=== PATIENT | male | born 1960 | race African-American/Black ===

== ENCOUNTER 2018-03-16 05:30 | Inpatient (IN) | payer BC, OTHER ==
[2018-03-16] MEDS ORDERED: NEOSTIGMINE 3 MG/3 ML SYRINGE (06:55)
[2018-03-16] MEDS ORDERED: GLYCOPYRROLATE 0.4 MG INJ (06:55)
[2018-03-16] MEDS ORDERED: ROCURONIUM 50 MG INJ (06:55)
[2018-03-16] MEDS ORDERED: PROPOFOL 20 ML (06:55)
[2018-03-16] MEDS ORDERED: MIDAZOLAM 1 MG/ML 2 ML INJ (06:55)
[2018-03-16] MEDS ORDERED: CEFAZOLIN 1 GM INJ (06:55)
[2018-03-16] MEDS ORDERED: ONDANSETRON 4 MG INJ (06:56)
[2018-03-16] MEDS ORDERED: DEXAMETHASONE 4 MG/ML 1 ML INJ (06:56)
[2018-03-16] MEDS ORDERED: SUGAMMADEX SODIUM 200 MG/2 ML VIAL IV (07:00)
[2018-03-16] MEDS ORDERED: SUCCINYLCHOLINE CHLORIDE 100 MG/5 ML SYG IV (07:00)
[2018-03-16] MEDS: CEFAZOLIN 1 GM/50 ML (PMX) 50 ML IVPB ×2 (07:27→16:40)
[2018-03-16] MEDS ORDERED: NALOXONE (0.4 MG/ML) INJ IV (07:30)
[2018-03-16] MEDS ORDERED: DIPHENHYDRAMINE 50 MG INJ IV ×2 (07:30→08:00)
[2018-03-16] MEDS ORDERED: LABETALOL HCL 20MG INJ (07:31)
[2018-03-16] MEDS ORDERED: TRIMETHOBENZAMIDE 100 MG/ML VIAL IM (08:00)
[2018-03-16] MEDS ORDERED: HYDROmorphONE 1 MG/5 ML IV SYRINGE IV ×3 (08:00)
[2018-03-16] MEDS ORDERED: LABETALOL HCL 20MG INJ IV (08:00)
[2018-03-16] MEDS ORDERED: ALBUTEROL 0.083% (NEB) 2.5 MG/3 ML AMP HHN (08:00)
[2018-03-16] MEDS ORDERED: ONDANSETRON 4 MG INJ IV (08:00)
[2018-03-16] MEDS ORDERED: OXYCODONE/ACETAMINOPHEN (5/325) TAB PO ×2 (08:00)
[2018-03-16] MEDS ORDERED: IPRATROPIUM (NEB) 0.5 MG/2.5 ML AMP HHN (08:00)
[2018-03-16] MEDS ORDERED: MEPERIDINE 25 MG INJ IV (08:00)
[2018-03-16] MEDS ORDERED: EPHEDrine SULFATE 50 MG/5 ML SYG IV (08:00)
[2018-03-16] MEDS ORDERED: FENTAnyl 50 MCG/ML VIAL IV ×2 (08:00)
[2018-03-16] MEDS ORDERED: hydrALAzine 20 MG INJ IV (08:00)
[2018-03-16] MEDS ORDERED: MIDAZOLAM 1 MG/ML 2 ML INJ IV (08:00)
[2018-03-16] MEDS: BUPIVACAINE 0.25%/EPI (SDV) 30 ML INJ (09:17)
[2018-03-16] MEDS: SURGIFOAM POWDER 1 GM KIT (09:28)
[2018-03-16] MEDS: CA CHLORIDE 10% 10 ML SYRINGE (09:28)
[2018-03-16] MEDS: POLYMYXIN/BACITRACIN 1L IRRIG (09:29)
[2018-03-16] MEDS: HEPARIN 1000 UNITS/ML 10 ML INJ (09:29)
[2018-03-16] MEDS: THROMBIN 5000 UNIT VIAL (09:30)
[2018-03-16] MEDS: HYDROmorphONE 0.2 MG/ML PCA IV (11:08)
[2018-03-16] MEDS: FENTAnyl 50 MCG/ML VIAL IV (11:22)
[2018-03-16] MEDS: DOCUSATE SODIUM 100 MG CAP PO ×2 (11:25→20:41)
[2018-03-16] MEDS: D5W-0.45 NACL + KCL 20 MEQ 1,000 ML IV ×2 (12:47→17:02)
[2018-03-16] MEDS: ONDANSETRON 4 MG INJ IV (12:47)
[2018-03-16] MEDS: [UNRECOGNIZED DRUG - REMARK] XX (13:20)
[2018-03-16] MEDS: GABAPENTIN 400 MG CAP PO ×2 (13:20→20:41)
[2018-03-16] MEDS: ACETAMINOPHEN 325 MG TAB PO (14:35)
[2018-03-16] MEDS: ATORVASTATIN 10 MG TAB PO (20:41)
[2018-03-16] MEDS ORDERED: NON-FORMULARY/PATIENT OWN MED (Varenicline Tartrate (Chantix) 1 MG) PO (21:00)
[2018-03-17] MEDS: CEFAZOLIN 1 GM/50 ML (PMX) 50 ML IVPB (00:04)
[2018-03-17] MEDS: CHANTIX 1 MG PO ×3 (00:04→20:18)
[2018-03-17] MEDS: D5W-0.45 NACL + KCL 20 MEQ 1,000 ML IV ×2 (03:02→13:02)
[2018-03-17 05:22] LABS: ADD MAN DIFF? NO
[2018-03-17 05:31] LABS: BASOPHILS % 0.1 % (0.0-2.0); HEMATOCRIT 37.7 % (42.0-52.0); HEMOGLOBIN 12.8 g/dl (14.0-18.0); LYMPHOCYTES % 11.6 % (15.0-51.0); MEAN CORPUSCULAR VOLUME 94.3 fl (82.0-101.0); MEAN PLATELET VOLUME 10.1 fl (7.4-10.4); MONOCYTE # 0.8 10^3/ul (0.3-0.9); MONOCYTES % 8.7 % (0.0-11.0); NEUTROPHILS % 79.3 % (39.0-77.0); PLATELET COUNT 176 10^3/UL (140-415); RED CELL DISTRIBUTION WIDTH 13.1 % (11.5-14.5)
[2018-03-17 05:31] LABS: WHITE BLOOD COUNT 8.8 10^3/ul (4.8-10.8)
[2018-03-17] MEDS: CEPASTAT LOZENGE MT (05:39)
[2018-03-17 06:26] LABS: ANION GAP 15 (8-16); BLOOD UREA NITROGEN 13 mg/dl (7-20); CALCIUM 8.9 mg/dl (8.4-10.2); CARBON DIOXIDE 23 mmol/L (21-31); CHLORIDE 106 mmol/L (97-110); CREATININE 0.95 mg/dl (0.61-1.24); GLUCOSE 151 mg/dl (70-220); MAGNESIUM 1.9 mg/dl (1.7-2.5); POTASSIUM 4.4 mmol/L (3.5-5.1); SODIUM 140 mmol/L (135-144)
[2018-03-17] MEDS: GABAPENTIN 400 MG CAP PO ×3 (08:36→20:17)
[2018-03-17] MEDS: PANTOPRAZOLE (EC) 40 MG TAB PO (08:37)
[2018-03-17] MEDS: DOCUSATE SODIUM 100 MG CAP PO ×2 (08:37→20:17)
[2018-03-17] MEDS: traMADol 50 MG TAB PO ×4 (09:37→23:47)
[2018-03-17] MEDS: ACETAMINOPHEN 325 MG TAB PO (19:21)
[2018-03-17] MEDS: ATORVASTATIN 10 MG TAB PO (20:17)
[2018-03-17] MEDS: HYDROmorphONE 0.5 MG/0.5 ML SYG IV (20:38)
[2018-03-18] MEDS: GABAPENTIN 400 MG CAP PO ×3 (07:56→20:40)
[2018-03-18] MEDS: PANTOPRAZOLE (EC) 40 MG TAB PO (07:56)
[2018-03-18] MEDS: CARISOPRODOL 350 MG TAB PO ×3 (07:56→20:40)
[2018-03-18] MEDS: traMADol 50 MG TAB PO ×3 (07:56→18:12)
[2018-03-18] MEDS: DOCUSATE SODIUM 100 MG CAP PO ×2 (07:57→20:40)
[2018-03-18] MEDS: CHANTIX 1 MG PO ×2 (07:57→20:40)
[2018-03-18] MEDS: CEPASTAT LOZENGE MT (08:01)
[2018-03-18] MEDS: HYDROmorphONE 0.5 MG/0.5 ML SYG IV (10:51)
[2018-03-18] MEDS: ACETAMINOPHEN 325 MG TAB PO (15:12)
[2018-03-18 16:49] LABS: ADD UMIC YES; UR ASCORBIC ACID NEGATIVE (NEGATIVE); UR BILIRUBIN (Dip) NEGATIVE (NEGATIVE); UR BLOOD (Dip) 1+ mg/dL (NEGATIVE); UR CLARITY CLEAR (CLEAR); UR COLOR YELLOW (YELLOW); UR GLUCOSE (Dip) NEGATIVE (NEGATIVE); UR KETONES (Dip) NEGATIVE (NEGATIVE); UR LEUKOCYTE ESTERASE (Dip) NEGATIVE Leu/ul (NEGATIVE); UR NITRITE (Dip) NEGATIVE (NEGATIVE); UR RBC 3 /HPF (0-5); UR SPECIFIC GRAVITY (Dip) 1.018 (1.003-1.030); UR TOTAL PROTEIN (Dip) NEGATIVE (NEGATIVE); UR UROBILINOGEN (Dip) 2+ mg/dL (NEGATIVE); UR WBC 1 /HPF (0-5)
[2018-03-18] MEDS: ATORVASTATIN 10 MG TAB PO (20:40)
[2018-03-19] MEDS: traMADol 50 MG TAB PO ×2 (01:28→08:02)
[2018-03-19 05:26] LABS: ADD MAN DIFF? NO
[2018-03-19 05:30] LABS: BASOPHIL # 0.1 10^3/ul (0.0-0.1); BASOPHILS % 0.6 % (0.0-2.0); EOSINOPHILS % 0.4 % (0.0-7.0); HEMATOCRIT 38.4 % (42.0-52.0); LYMPHOCYTES % 31.7 % (15.0-51.0); MEAN CORPUSCULAR HEMOGLOBIN 31.6 pg (29.0-33.0); MEAN CORPUSCULAR HGB CONC 33.9 g/dl (32.0-37.0); MEAN CORPUSCULAR VOLUME 93.2 fl (82.0-101.0); MEAN PLATELET VOLUME 10.2 fl (7.4-10.4); MONOCYTE # 1.2 10^3/ul (0.3-0.9); NEUTROPHIL # 5.1 10^3/ul (1.6-7.5); PLATELET COUNT 174 10^3/UL (140-415); RED BLOOD COUNT 4.12 10^6/ul (4.70-6.10); RED CELL DISTRIBUTION WIDTH 13.4 % (11.5-14.5)
[2018-03-19 05:30] LABS: WHITE BLOOD COUNT 9.4 10^3/ul (4.8-10.8)
[2018-03-19] MEDS: DOCUSATE SODIUM 100 MG CAP PO ×2 (08:01→20:09)
[2018-03-19] MEDS: CHANTIX 1 MG PO ×2 (08:01→20:09)
[2018-03-19] MEDS: GABAPENTIN 400 MG CAP PO ×3 (08:01→20:09)
[2018-03-19] MEDS: CARISOPRODOL 350 MG TAB PO ×2 (08:01→20:10)
[2018-03-19] MEDS: PANTOPRAZOLE (EC) 40 MG TAB PO (08:02)
[2018-03-19] MEDS: ACETAMINOPHEN 325 MG TAB PO ×2 (09:54→20:09)
[2018-03-19] MEDS: HYDROmorphONE 0.5 MG/0.5 ML SYG IV (10:46)
[2018-03-19] MEDS: CIPROFLOXACIN 500 MG TAB PO (17:43)
[2018-03-19] MEDS: ATORVASTATIN 10 MG TAB PO (20:09)
[2018-03-19] MEDS: AL HYDROX/MG HYDROX/SIMETH 30 ML CUP PO (20:19)
[2018-03-20] MEDS: traMADol 50 MG TAB PO ×2 (06:11→19:29)
[2018-03-20] MEDS: CIPROFLOXACIN 500 MG TAB PO ×2 (06:11→17:50)
[2018-03-20] MEDS: ACETAMINOPHEN 325 MG TAB PO (06:11)
[2018-03-20] MEDS ORDERED: VANCOMYCIN IV PER PHARMACY XX (09:00)
[2018-03-20] MEDS: HYDROmorphONE 0.5 MG/0.5 ML SYG IV ×2 (09:20→18:04)
[2018-03-20] MEDS: CHANTIX 1 MG PO ×2 (09:37→21:13)
[2018-03-20] MEDS: DOCUSATE SODIUM 100 MG CAP PO ×2 (09:38→21:12)
[2018-03-20] MEDS: GABAPENTIN 400 MG CAP PO ×3 (09:38→21:12)
[2018-03-20] MEDS: PANTOPRAZOLE (EC) 40 MG TAB PO (09:38)
[2018-03-20] MEDS: VANCOMYCIN 2 GM in SOD CHLORIDE 0.9% 500 ML IVPB (11:58)
[2018-03-20] MEDS ORDERED: METHYLNALTREXONE 12 MG/0.6 ML VIAL SC (19:30)
[2018-03-20] MEDS: POLYETHYLENE GLYCOL 17 GM PACKET PO (21:12)
[2018-03-20] MEDS: ATORVASTATIN 10 MG TAB PO (21:12)
[2018-03-21] MEDS: VANCOMYCIN 1.25 GM in SOD CHLORIDE 0.9% 250 ML IVPB ×2 (00:07→13:03)
[2018-03-21 05:24] LABS: BLOOD UREA NITROGEN 11 mg/dl (7-20)
[2018-03-21 05:24] LABS: CREATININE 0.99 mg/dl (0.61-1.24)
[2018-03-21] MEDS: BISACODYL 10 MG SUPP PR (05:29)
[2018-03-21] MEDS: CIPROFLOXACIN 500 MG TAB PO (05:29)
[2018-03-21] MEDS: traMADol 50 MG TAB PO (05:32)
[2018-03-21] MEDS: PANTOPRAZOLE (EC) 40 MG TAB PO (09:15)
[2018-03-21] MEDS: GABAPENTIN 400 MG CAP PO ×2 (09:15→13:03)
[2018-03-21] MEDS: DOCUSATE SODIUM 100 MG CAP PO (09:15)
[2018-03-21] MEDS: CHANTIX 1 MG PO (09:16)
== END 2018-03-21 16:10 | DRG 518 ==
LOC: REC 05:30 → MS1 11:39
PROC: 0SH30BZ Insertion of Interspinous Process Spinal Stabilization Device into Lumbosacral Joint, Open Approach (ICD-10-PCS; principal; 2018-03-16 07:00)
PROC: 01NB0ZZ Release Lumbar Nerve, Open Approach (ICD-10-PCS; 2018-03-16 07:00)
PROC: 4A11X4G Monitoring of Peripheral Nervous Electrical Activity, Intraoperative, External Approach (ICD-10-PCS; 2018-03-16 07:00)
DX: M53.2X7 Spinal instabilities, lumbosacral region (principal); N39.0 Urinary tract infection, site not specified; M53.87 Other specified dorsopathies, lumbosacral region; M48.07 Spinal stenosis, lumbosacral region; E78.5 Hyperlipidemia, unspecified; G47.30 Sleep apnea, unspecified; K21.9 Gastro-esophageal reflux disease without esophagitis; M48.8X7 Other specified spondylopathies, lumbosacral region; M54.17 Radiculopathy, lumbosacral region; Z87.891 Personal history of nicotine dependence
CPT/HCPCS: 71045; 72100; 80048; 81001; 82565; 83735; 84520; 85025; 86850; 86900; 86901; 86999; 87040; 87086; 97110; 97116; 97161; 97530

== ENCOUNTER 2018-03-21 16:57 | Inpatient (IN) | payer OTHER ==
[2018-03-21] MEDS ORDERED: DIPHENHYDRAMINE 50 MG INJ IV (18:00)
[2018-03-21] MEDS ORDERED: ONDANSETRON 4 MG INJ IV (18:00)
[2018-03-21] MEDS ORDERED: VANCOMYCIN IV PER PHARMACY XX (18:00)
[2018-03-21] MEDS ORDERED: NALOXONE (0.4 MG/ML) INJ IV (18:00)
[2018-03-21] MEDS ORDERED: BISACODYL 10 MG SUPP PR (18:00)
[2018-03-21] MEDS ORDERED: CEPASTAT LOZENGE MT (18:00)
[2018-03-21] MEDS ORDERED: AL HYDROX/MG HYDROX/SIMETH 30 ML CUP PO (18:00)
[2018-03-21] MEDS ORDERED: LACTULOSE 30ML CUP PO (18:30)
[2018-03-21] MEDS ORDERED: MAGNESIUM HYDROXIDE 30ML CUP PO (18:30)
[2018-03-21] MEDS: HYDROmorphONE 0.5 MG/0.5 ML SYG IV (18:53)
[2018-03-21 19:53] LABS: ADD UMIC NO; UR ASCORBIC ACID NEGATIVE (NEGATIVE); UR BILIRUBIN (Dip) NEGATIVE (NEGATIVE); UR BLOOD (Dip) NEGATIVE (NEGATIVE); UR CLARITY CLEAR (CLEAR); UR COLOR STRAW (YELLOW); UR GLUCOSE (Dip) NEGATIVE (NEGATIVE); UR KETONES (Dip) NEGATIVE (NEGATIVE); UR LEUKOCYTE ESTERASE (Dip) NEGATIVE Leu/ul (NEGATIVE); UR NITRITE (Dip) NEGATIVE (NEGATIVE); UR SPECIFIC GRAVITY (Dip) 1.006 (1.003-1.030); UR TOTAL PROTEIN (Dip) NEGATIVE (NEGATIVE); UR UROBILINOGEN (Dip) 1+ mg/dL (NEGATIVE)
[2018-03-21] MEDS: DOCUSATE SODIUM 100 MG CAP PO (20:21)
[2018-03-21] MEDS: GABAPENTIN 400 MG CAP PO (20:21)
[2018-03-21] MEDS: SENNA TAB PO (20:21)
[2018-03-21] MEDS: CIPROFLOXACIN 500 MG TAB PO (20:21)
[2018-03-21] MEDS: ATORVASTATIN 10 MG TAB PO (20:21)
[2018-03-21] MEDS: ACETAMINOPHEN 325 MG TAB PO (20:33)
[2018-03-21] MEDS: CHANTIX 1 MG PO (22:14)
[2018-03-22 01:03] LABS: VANCOMYCIN,TROUGH 9.7 ug/ml (10.0-20.0)
[2018-03-22] MEDS: VANCOMYCIN 1.25 GM in SOD CHLORIDE 0.9% 250 ML IVPB ×2 (01:27→11:53)
[2018-03-22] MEDS: CIPROFLOXACIN 500 MG TAB PO (06:38)
[2018-03-22] MEDS: PANTOPRAZOLE (EC) 40 MG TAB PO (06:38)
[2018-03-22] MEDS: traMADol 50 MG TAB PO ×2 (06:42→20:42)
[2018-03-22 07:37] LABS: ADD MAN DIFF? NO
[2018-03-22 07:40] LABS: WHITE BLOOD COUNT 6.5 10^3/ul (4.8-10.8)
[2018-03-22 07:40] LABS: BASOPHILS % 0.5 % (0.0-2.0); EOSINOPHILS # 0.4 10^3/ul (0.0-0.5); EOSINOPHILS % 6.6 % (0.0-7.0); HEMATOCRIT 38.8 % (42.0-52.0); HEMOGLOBIN 13.1 g/dl (14.0-18.0); IMMATURE GRANS #M 0.01 10^3/ul; IMMATURE GRANS % (M) 0.2 %; LYMPHOCYTES # 1.7 10^3/ul (0.8-2.9); LYMPHOCYTES % 26.8 % (15.0-51.0); MEAN CORPUSCULAR HGB CONC 33.8 g/dl (32.0-37.0); MEAN CORPUSCULAR VOLUME 91.9 fl (82.0-101.0); MEAN PLATELET VOLUME 9.4 fl (7.4-10.4); MONOCYTE # 0.9 10^3/ul (0.3-0.9); MONOCYTES % 13.4 % (0.0-11.0); NEUTROPHIL # 3.4 10^3/ul (1.6-7.5); NEUTROPHILS % 52.5 % (39.0-77.0); PLATELET COUNT 224 10^3/UL (140-415); RED BLOOD COUNT 4.22 10^6/ul (4.70-6.10)
[2018-03-22 08:00] LABS: ALANINE AMINOTRANSFERASE 41 IU/L (13-69); ALBUMIN 3.5 g/dl (3.3-4.9); ALBUMIN/GLOBULIN RATIO 1.02; ALKALINE PHOSPHATASE 43 IU/L (42-121); ANION GAP 11 (8-16); ASPARTATE AMINO TRANSFERASE 40 IU/L (15-46); BILIRUBIN,INDIRECT 0.7 mg/dl (0-1.1); BILIRUBIN,TOTAL 0.7 mg/dl (0.2-1.3); BLOOD UREA NITROGEN 12 mg/dl (7-20); CALCIUM 9.1 mg/dl (8.4-10.2); CARBON DIOXIDE 26 mmol/L (21-31); CHLORIDE 105 mmol/L (97-110); CREATININE 0.92 mg/dl (0.61-1.24); GLUCOSE 115 mg/dl (70-220); SODIUM 138 mmol/L (135-144); TOTAL PROTEIN 6.9 g/dl (6.1-8.1)
[2018-03-22] MEDS: CHANTIX 1 MG PO ×2 (08:28→20:42)
[2018-03-22] MEDS: GABAPENTIN 400 MG CAP PO ×3 (08:28→20:42)
[2018-03-22] MEDS: DOCUSATE SODIUM 100 MG CAP PO ×2 (08:28→20:42)
[2018-03-22] MEDS: CARISOPRODOL 350 MG TAB PO (08:28)
[2018-03-22] MEDS: HYDROmorphONE 0.5 MG/0.5 ML SYG IV (14:44)
[2018-03-22] MEDS: ATORVASTATIN 10 MG TAB PO (20:42)
[2018-03-22] MEDS: SENNA TAB PO (20:42)
[2018-03-23] MEDS: PANTOPRAZOLE (EC) 40 MG TAB PO (06:41)
[2018-03-23] MEDS: CARISOPRODOL 350 MG TAB PO (07:47)
[2018-03-23] MEDS: HYDROCODONE/APAP (10/325) TAB PO ×2 (07:47→20:19)
[2018-03-23] MEDS: DOCUSATE SODIUM 100 MG CAP PO ×2 (08:49→20:22)
[2018-03-23] MEDS: CHANTIX 1 MG PO ×2 (08:49→21:00)
[2018-03-23] MEDS: GABAPENTIN 400 MG CAP PO ×3 (08:49→20:22)
[2018-03-23] MEDS: ATORVASTATIN 10 MG TAB PO (20:22)
[2018-03-23] MEDS: SENNA TAB PO (20:22)
[2018-03-24] MEDS: PANTOPRAZOLE (EC) 40 MG TAB PO (06:38)
[2018-03-24] MEDS: DOCUSATE SODIUM 100 MG CAP PO ×2 (08:36→21:35)
[2018-03-24] MEDS: GABAPENTIN 400 MG CAP PO ×3 (08:37→21:35)
[2018-03-24] MEDS: HYDROCODONE/APAP (10/325) TAB PO ×2 (08:37→21:36)
[2018-03-24] MEDS: CHANTIX 1 MG PO ×2 (08:39→21:00)
[2018-03-24] MEDS: SENNA TAB PO (21:35)
[2018-03-24] MEDS: ATORVASTATIN 10 MG TAB PO (21:35)
[2018-03-25] MEDS: PANTOPRAZOLE (EC) 40 MG TAB PO (07:03)
[2018-03-25] MEDS: DOCUSATE SODIUM 100 MG CAP PO ×2 (08:48→21:25)
[2018-03-25] MEDS: GABAPENTIN 400 MG CAP PO ×3 (08:48→21:25)
[2018-03-25] MEDS: HYDROmorphONE 0.5 MG/0.5 ML SYG IV ×5 (08:50→21:30)
[2018-03-25] MEDS: CHANTIX 1 MG PO ×2 (09:00→21:00)
[2018-03-25] MEDS ORDERED: HYDROmorphONE 2 MG/ML SYG IV (17:24)
[2018-03-25] MEDS: ATORVASTATIN 10 MG TAB PO (21:25)
[2018-03-25] MEDS: SENNA TAB PO (21:25)
[2018-03-26] MEDS: PANTOPRAZOLE (EC) 40 MG TAB PO (06:51)
[2018-03-26] MEDS: GABAPENTIN 400 MG CAP PO (08:48)
[2018-03-26] MEDS: DOCUSATE SODIUM 100 MG CAP PO (08:48)
[2018-03-26] MEDS: HYDROmorphONE 0.5 MG/0.5 ML SYG IV (08:50)
[2018-03-26] MEDS: CHANTIX 1 MG PO (09:00)
== END 2018-03-26 11:45 | disposition home health service (06) | DRG 552 ==
LOC: VRC 16:57
DX: M54.16 Radiculopathy, lumbar region (principal); N39.0 Urinary tract infection, site not specified; M48.061 Spinal stenosis, lumbar region without neurogenic claudication; E78.5 Hyperlipidemia, unspecified; G47.30 Sleep apnea, unspecified; K21.9 Gastro-esophageal reflux disease without esophagitis; Z74.09 Other reduced mobility; B96.5 Pseudomonas (aeruginosa) (mallei) (pseudomallei) as the cause of diseases classified elsewhere; E78.00 Pure hypercholesterolemia, unspecified; Z87.891 Personal history of nicotine dependence; E66.9 Obesity, unspecified; Z68.36 Body mass index [BMI] 36.0-36.9, adult; Z98.890 Other specified postprocedural states
CPT/HCPCS: 80053; 80202; 81003; 85025; 87081; 87086; 97110; 97116; 97162; 97167; 97530; 97535